=== PATIENT | female | born 1970 | race Caucasian/White ===

== ENCOUNTER 2021-07-15 17:31 | Emergency (ER) | payer BC, OTHER ==
[~2021-07-15] VITALS: Ht 154.9 cm; Wt 163.2 kg
[2021-07-15] MEDS ORDERED: LISI1TAB26 (17:42)
[2021-07-15] MEDS ORDERED: FLUT16SP22 (17:42)
[2021-07-15] MEDS ORDERED: ALPR1TAB7 (17:42)
--- NOTE | 2021-07-15 18:12 | ED Fall/Injury ---
General Chief Complaint: Trauma-Non Activation Stated Complaint: FALL Nursing Triage Note: Patient walking on sidewalk at employment and tripped on concrete and fell onto her R side. Pt c/o pain R shoulder, R hip, R knee. Pt has shoulder wrapped by EMS to immobilize. Pt reports all painful areas are limited ROM r/t pain. History of Present Illness Date Seen by Provider: Jul 15, 2021 Time Seen by Provider: 17:47 Initial Comments 50-year-old female presents with pain into her right shoulder, right hip and right knee. Patient reports that she was walking at work when she tripped over some concrete and fell onto her right side. Patient main complaint is her right shoulder with limited range of motion in her right knee with some minor pain in her right hip. Patient states she may have hit her face a little bit but no real pain in her face, did not hit her head did not lose consciousness. Patient was brought in by EMS. Location Injury Occurred: [facility] Allergies and Home Medications Allergies Coded Allergies: metformin (Unverified Allergy, Unknown, Nausea and vomiting, diarrhea, 07/15/21) shellfish derived (Unverified Adverse Reaction, Severe, Anaphylaxis, 07/15/21) Egg Derived (Unverified Adverse Reaction, Mild, Nausea and Vomiting, 07/15/21) chicken derived (Unverified Adverse Reaction, Mild, Hives, 07/15/21) oseltamivir (Unverified Adverse Reaction, Mild, Rash, 07/15/21) Patient Home Medication List Home Medication List Reviewed: Yes Alprazolam (Alprazolam) 1 Mg Tablet, (Reported) Entered as Reported by: SHANNAN PARK on 07/15/211741 Last Action: New Order Diltiazem HCl (Diltiazem ER) 240 Mg Capsule.er, (Reported) Entered as Reported by: SHANNAN PARK on 07/15/211955 Last Action: New Order Lisinopril/Hydrochlorothiazide (Lisinopril-Hctz 20-25 mg Tab) 1 Each Tablet, (Reported) Entered as Reported by: SHANNAN PARK on 07/15/211741 Last Action: New Order Discontinued Medications Fluticasone Propionate (Fluticasone Propionate) 16 Gm [place].susp, (Reported) Discontinued Reason: Referral/FU Appt-Addtl Entered as Reported by: SHANNAN PARK on 07/15/211741 Last Action: Discontinued Review of Systems Review of Systems Constitutional: No chills, No fever Eyes: No Symptoms Reported Ears, Nose, Mouth, Throat: no symptoms reported Respiratory: no symptoms reported Cardiovascular: no symptoms reported Gastrointestinal: no symptoms reported Genitourinary: no symptoms reported Musculoskeletal: see HPI Skin: see HPI Psychiatric/Neurological: No Symptoms Reported Past Qzktrat-Rlzkvi-Aauulw Hx Patient Social History Tobacco Use?: No Smoking Status: Never a Smoker Use of E-Cig and/or Vaping dev: No Substance use?: No Alcohol Use?: No Immunizations Up To Date Second COVID19 Vaccination Mal: May 2021 COVID19 Vaccine Customer Sales Advisor: Shaheen Past Medical History Surgery/Hospitalization HX: DM, Obesity, HTN Physical Exam Vital Signs Vital Signs - First Documented Capillary Refill : Less Than 3 Seconds Height, Weight, BMI Height: '" Weight: lbs. oz. kg; BMI Method: General Appearance: no apparent distress, obese (morbid ) Cardiovascular: normal peripheral pulses, regular rate, rhythm Respiratory: lungs clear, normal breath sounds Extremities: normal capillary refill, other (right shoulder in sling, ttp, painful ROM, right knee ttp, right hip-ttp, rom limited due to pain both hip,knee, no obvious deformity noted ) Neurologic/Psychiatric: alert, normal mood/affect, oriented x 3 Progress/Results/Core Measures Results/Orders My Orders Orders - PHILL CORONEL DO Knee 3 View Right (07/15/21 17:36) Pelvis/Milo Hips 2 View (07/15/21 17:36) Shoulder 2 View Right (07/15/21 17:36) Morphine Injection (Morphine Injection (07/15/21 18:45) Ed Ortho/Other Supplies Order (07/15/21 18:55) Knee Immobilizer (07/15/21 18:55) Medications Given in ED Current Medications Medications Dose Ordered Sig/Malini Route Start Time Stop Time Status Last Admin Dose Admin Morphine Sulfate 2 mg ONCE ONCE IVP 07/15/21 18:45 07/15/21 18:46 DC 07/15/21 18:51 2 MG Vital Signs/I&O 07/15/21 07/15/21 07/15/21 17:31 17:31 18:51 Temp 36.4 36.4 36.4 Pulse 74 74 Resp 20 20 B/P (MAP) 99/46 (63) 99/46 (63) Pulse Ox 96 96 O2 Delivery Room Air Room Air Blood Pressure Mean: 63 Progress Progress Note : Progress Note Patient with both a distal femur and proximal humerus fracture. I did discuss with [facility]. Patient was accepted by Dr. Fernandes for transfer and further management. Patient was transferred in stable condition by EMS Diagnostic Imaging Diagonstic Imaging: Xray Plain Films/CT/US/NM/MRI: knee Comments Date of Exam:07/15/21 KNEE 3 VIEW RIGHT INDICATION: Trauma, knee pain. EXAMINATION: Right knee at 6:13 p.m. Three views were obtained. COMPARISON: There is no prior study available for comparison. FINDINGS: There is a comminuted displaced fracture of the distal femoral diaphysis. The main distal fracture fragment is displaced medially and posteriorly by less than half the width of the femoral shaft. No other fracture or acute bony abnormality is appreciated. There is only mild degenerative disease of the knee joint. The soft tissues are unremarkable. IMPRESSION: 1. There is a comminuted displaced fracture of the distal femur. If further imaging is desired, then CT would be recommended. 2. There is no acute bony abnormality noted otherwise. Reviewed: Reviewed by Me, Reviewed/Discussed Diagonstic Imaging: Xray Plain Films/CT/US/NM/MRI: other Comments Date of Exam:07/15/21 SHOULDER 2 VIEW RIGHT EXAMINATION: Right shoulder at 5:52 pm INDICATION: Trauma Four views were obtained. There are no prior studies available for comparison. There is a comminuted displaced fracture of the humeral head. The alignment of the main fracture fragments is difficult to appreciate due to the patient's body habitus. If further study is desired, then CT would be recommended. There does not appear to be any dislocation of the glenohumeral joint. There is mild degenerative disease of the acromioclavicular joint. The soft tissues are unremarkable otherwise. IMPRESSION: There is a comminuted displaced fracture of the humeral head. Additional considerations as above. Reviewed: Reviewed by Me, Reviewed/Discussed Diagonstic Imaging: Xray Plain Films/CT/US/NM/MRI: pelvis Comments Date of Exam:07/15/21 PELVIS/MILO HIPS 2 VIEW EXAMINATION: Pelvis and bilateral hips at 6:07 pm INDICATION: Trauma Single AP view of the pelvis and AP and lateral views of both hip joints were obtained. There are no prior studies available for comparison. There is no fracture, dislocation or acute bony abnormality evident. There is mild degenerative disease involving the hip and sacroiliac joints. The soft tissues are unremarkable. IMPRESSION: There is no evidence for an acute bony abnormality. Reviewed: Reviewed by Me, Reviewed/Discussed Departure Impression Primary Impression: Displaced fracture of right femur Additional Impression: Displaced fracture of right humerus Disposition: XFER SHT-TRM HOSP Condition: Stable Transfer Transfer Reason: Exceeds level of care Time Spoke to Accepting Phy: 17:50 Transfer Progress Notes Transfer accepted by [facility], Dr. Fernandes Transfer Facility: [facility] Departure-Patient Inst. Referrals: SELF,ANTHONY CORTÉS (PCP/Family) Primary Care Physician PHILL CORONEL DO Jul 15, 2021 18:12
[2021-07-15] MEDS ORDERED: morphine INJ 10 MG/ML 1ML (SYR OR VIAL) IVP ONE (18:45)
--- NOTE | 2021-07-15 18:58 | Diagnostic Imaging Report ---
INDICATION: Trauma, knee pain. EXAMINATION: Right knee at 6:13 p.m. Three views were obtained. COMPARISON: There is no prior study available for comparison. FINDINGS: There is a comminuted displaced fracture of the distal femoral diaphysis. The main distal fracture fragment is displaced medially and posteriorly by less than half the width of the femoral shaft. No other fracture or acute bony abnormality is appreciated. There is only mild degenerative disease of the knee joint. The soft tissues are unremarkable. IMPRESSION: 1. There is a comminuted displaced fracture of the distal femur. If further imaging is desired, then CT would be recommended. 2. There is no acute bony abnormality noted otherwise. Dictated by: Dictated on workstation # [id number]
--- NOTE | 2021-07-15 19:00 | Diagnostic Imaging Report ---
EXAMINATION: Pelvis and bilateral hips at 6:07 pm INDICATION: Trauma Single AP view of the pelvis and AP and lateral views of both hip joints were obtained. There are no prior studies available for comparison. There is no fracture, dislocation or acute bony abnormality evident. There is mild degenerative disease involving the hip and sacroiliac joints. The soft tissues are unremarkable. IMPRESSION: There is no evidence for an acute bony abnormality. Dictated by: Dictated on workstation # [id number]
--- NOTE | 2021-07-15 19:26 | Diagnostic Imaging Report ---
EXAMINATION: Right shoulder at 5:52 pm INDICATION: Trauma Four views were obtained. There are no prior studies available for comparison. There is a comminuted displaced fracture of the humeral head. The alignment of the main fracture fragments is difficult to appreciate due to the patient's body habitus. If further study is desired, then CT would be recommended. There does not appear to be any dislocation of the glenohumeral joint. There is mild degenerative disease of the acromioclavicular joint. The soft tissues are unremarkable otherwise. IMPRESSION: There is a comminuted displaced fracture of the humeral head. Additional considerations as above. Dictated by: Dictated on workstation # [id number]
[2021-07-15] MEDS ORDERED: DILT240C87 (19:56)
[2021-07-15 21:03] VITALS: BP 149/80
== END 2021-07-15 21:03 | disposition short-term general hospital (02) ==
LOC: ER FS 17:33
DX: S72.491A Other fracture of lower end of right femur, initial encounter for closed fracture (principal); S42.391A Other fracture of shaft of right humerus, initial encounter for closed fracture; E66.01 Morbid (severe) obesity due to excess calories; I10 Essential (primary) hypertension; E11.9 Type 2 diabetes mellitus without complications; Z79.899 Other long term (current) drug therapy; W01.0XXA Fall on same level from slipping, tripping and stumbling without subsequent striking against object, initial encounter; Y99.0 Civilian activity done for income or pay
CPT/HCPCS: 73030; 73521; 73562

== ENCOUNTER → 2022-05-30 | Outpatient (CLI) | payer BC ==
[~2022-05-30] MED LIST: ALPR1TAB7; DILT240C87; FLUT16SP22; LISI1TAB48
--- NOTE | 2022-05-30 12:10 | Diagnostic Imaging Report ---
Indication: Right knee pain. Time of Exam: 11:26 AM Multiple views of the right knee were obtained. There is an intramedullary allen with numerous screws transfixing a distal femur fracture. This appears to be mostly healed. The hardware is intact without fracture or loosening. Knee joint compartments appear to be well maintained. The articular surfaces are smooth. No fracture, dislocation or effusion is detected. Impression: Postoperative changes of ORIF of distal femur fracture. No acute features identified. Dictated by: Dictated on workstation # [id number]
== END ==
LOC: RAD FS 11:07
PROVIDERS: ATTEND Nurse Practitioner
DX: M25.561 Pain in right knee (principal); Z98.890 Other specified postprocedural states
CPT/HCPCS: 73562

== ENCOUNTER 2023-02-24 09:39 | Outpatient (RCR) | payer BC ==
[~2023-02-24 09:39] MED LIST changes: +FERRIC CARBOXYMALTOSE INJ 750 MG in NS (IVPB) 250 ML IV SCH
== END 2023-03-12 | disposition home or self-care (01) ==
LOC: ONC 09:39
PROVIDERS: ATTEND Internal Medicine Hematology & Oncology
DX: Z51.11 Encounter for antineoplastic chemotherapy (principal); D50.9 Iron deficiency anemia, unspecified; E66.01 Morbid (severe) obesity due to excess calories; R73.9 Hyperglycemia, unspecified
CPT/HCPCS: 36415; 96365

== ENCOUNTER 2023-04-04 14:15 | Outpatient (RCR) | payer BC ==
[~2023-04-04 14:15] MED LIST changes: +DILT240C74; -DILT240C87; -FERRIC CARBOXYMALTOSE INJ 750 MG in NS (IVPB) 250 ML IV SCH
== END 2023-04-12 | disposition home or self-care (01) ==
LOC: ONC 14:15
PROVIDERS: ATTEND Internal Medicine Hematology & Oncology
DX: D50.9 Iron deficiency anemia, unspecified (principal); E66.01 Morbid (severe) obesity due to excess calories; R73.9 Hyperglycemia, unspecified
CPT/HCPCS: 36415; 82728; 83540; 83550